=== PATIENT | male | born 1965 | race Caucasian/White ===

== ENCOUNTER 2021-05-05 07:55 | Emergency (ER) | payer MEDICARE, SELFPAY ==
--- NOTE | 2021-05-05 08:17 | DI.RAD.S_ITS ---
PROCEDURE: XR ELBOW LT MIN 3V INDICATIONS: Elbow Pain TECHNIQUE: 3 views of the elbow were acquired. COMPARISON: None. FINDINGS: Bones: Linear lucency at the radial head. This is only seen on one view. No dislocations. No suspicious bony lesions. Soft tissues: No elbow joint effusion demonstrated. No suspicious soft tissue calcifications. IMPRESSION: Possible nondisplaced radial head fracture. CT of the elbow could be performed to confirm the diagnosis. Recommend follow-up radiographs in 10-14 days. Dictated by: Alcides Villasenor M.D. on 05/05/2021 at 8:44 Approved by: Alcides Villasenor M.D. on 05/05/2021 at 8:47
[2021-05-05 08:19] VITALS: BP 160/94; PULSE 66; RESP 16; TEMP 36.5; O2SAT 99; BMI 29.5
--- NOTE | 2021-05-05 08:36 | ED.UPPEXIN ---
HPI - Extremity Injury (Upper) General Chief Complaint: Extremity Injury, Upper Stated Complaint: Left elbow pain, weakness Time Seen by Provider: 05/05/21 08:22 Source: patient Mode of arrival: Ambulatory Limitations: no limitations History of Present Illness HPI narrative: This is a 55-year-old male who comes to the emergency department with complaint of left elbow pain. Patient does not recall any specific trauma or injury. He does note that he has a new job working in a [employer]. Patient notes that he has pain in the inner crease of the elbow at the tendon as well as the tip of the elbow. He has not appreciated any swelling. No warmth, erythema or other skin changes. Patient states increased pain with movement particularly lifting but also rotating. Patient states that when he lifts objects at causes pain. He states that it feels weaker when he tries to lift objects but just at the elbow. 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 He has not had similar symptoms in the past. He denies any numbness, tingling or other sensation changes. He denies any other symptoms. No chest pain, shortness of breath, no fevers. Patient does note incidentally he had accidentally had the edge of a drill injury the skin on his abdomen. He had the drill pointed towards an object that was drilling through an object sitting on his abdomen. The drill penetrated the object and caught his shirt and caused an injury to his anterior abdomen. He states it has been healing without issue. He does not know if his tetanus is up-to-date but politely refuses updating it today. He does have a history of SVT, diabetes and takes multiple medications. He does smoke daily, denies any illicit. 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 Patient is currently seeking a primary care provider. Related Data Allergies Allergy/AdvReac Type Severity Reaction Status Date / Time Latex, Natural Rubber Allergy Verified 05/05/21 08:19 Review of Systems Review of Systems ROS Unobtainable: All systems reviewed & are unremarkable except as noted in HPI and below Patient History Social History Smoking Status: Current every day smoker Smoking Status: Current every day smoker tobacco type: vaping Substance Use Type: does not use Exam Narrative Exam Narrative: GENERAL: Alert and oriented x three, mild distress. HEENT: Head normocephalic, atraumatic, EOMI, pupils reactive, face symmetric, moist mucous membranes NECK: Supple, full range of motion CARDIOVASCULAR: Regular rate and rhythm without murmurs, rubs or gallops. RESPIRATORY: Breath sounds equal bilaterally, no wheezes rales or rhonchi. ABDOMEN: Soft, nontender. Normoactive bowel sounds all 4 quadrants. No guarding or rebound, rigidity, no mass. Patient has small abrasion which is scabbed over on his anterior abdomen superior to the umbilicus. There is no warmth erythema or drainage. It appears to be healing appropriately. EXTREMITIES: Normal range of motion, no clubbing or edema. Neurovascularly intact. Patient does not have any bony tenderness on examination. 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 2+ radial pulse bilaterally. Patient has cap refills less than 2 seconds in all 10 fingers with normal sensation throughout upper extremities. Patient does have some mild discomfort with palpation the tendon in the inner elbow. Patient does not have any swelling or ballotable effusion of the elbow. NEUROLOGICAL: Cranial nerves II through XII grossly intact. Moving all extremities SKIN: Warm, dry, no petechiae, no rashes or lesions other than noted above. Initial Vital Signs Initial Vital Signs: Vital Signs Temperature 97.7 F 05/05/21 08:19 Pulse Rate 66 05/05/21 08:19 Respiratory Rate 16 05/05/21 08:19 Blood Pressure 160/94 H 05/05/21 08:19 Pulse Oximetry 99 05/05/21 08:19 Course Orders Ordered: ED Orders 05/05/21 08:17 XR elbow LT min 3V Stat 05/05/21 09:04 CT UE LT wo con Stat Vital Signs Vital signs: Vital Signs - 8 hr 05/05/21 08:19 Temperature 97.7 F Pulse Rate 66 Respiratory Rate 16 Blood Pressure 160/94 H Pulse Oximetry 99 MDM - Extremity Injury (Upper) Lab Data Labs: Point of Care Testing Glucose POC 97 Imaging Data Extremity x-ray #1: Radiologist's Impression: Launch?[address] [address] XRay Report Signed Patient: Adair Branch MR#: [id number] : 1965 Acct:[id number] Age/Sex: 55 / M Date of Service: 05/05/21 Loc: ED Accession Number: [id number] ?? Procedure: XR elbow LT min 3V Ordering Provider: Savana Ramires D.O. PROCEDURE:? XR ELBOW LT MIN 3V ? INDICATIONS:? Elbow Pain ? TECHNIQUE:? 3 views of the elbow were acquired.? ? COMPARISON:? None. ? FINDINGS:? ? Bones:? Linear lucency at the radial head.? This is only seen on one view.? No dislocations.? No suspicious bony lesions.? ? Soft tissues:? No elbow joint effusion demonstrated.? No suspicious soft tissue calcifications.? ? ? IMPRESSION:? Possible nondisplaced radial head fracture. ? CT of the elbow could be performed to confirm the diagnosis.? Recommend follow-up radiographs in 10-14 days. ? ? Dictated by: Alcides Villasenor M.D. on 05/05/2021 at 8:44 ? ? Approved by: Alcides Villasenor M.D. on 05/05/2021 at 8:47 CT UE: Radiologist's Impression: [place] [address] CT Scan Report Signed Patient: Adair Branch MR#: [id number] : 1965 Acct:[id number] Age/Sex: 55 / M Date of Service: 05/05/21 Loc: ED Accession Number: [id number] ?? Procedure: CT UE LT wo con Ordering Provider: Savana Ramires D.O. PROCEDURE:? CT UE LT WO CON ? INDICATIONS:? ? radial head fracture ? TECHNIQUE:? Noncontrast 1-1.5 mm axial sections were acquired through the elbow joint, with coronal and sagittal reformats.? ? COMPARISON:? [facility], CR, XR ELBOW LT MIN 3V, 05/05/2021, 8:17. ? FINDINGS:? Image quality:? Excellent.? ? Bones:? No fracture or dislocation. ? Soft tissues:? No soft tissue mass or large hematoma.? There is stranding and heterogeneous attenuation in the posterior elbow around olecranon.? No fluid collections. ? IMPRESSION:? ? 1. No radial head fracture is visualized on CT. 2. Stranding and heterogeneous attenuation posterior to elbow.? Differential diagnoses include partial tear or tendinitis of the triceps tendon and olecranon bursitis. ? ? ? Dictated by: Clayton Green M.D. on 05/05/2021 at 9:56 ? ? Approved by: Clayton Green M.D. on 05/05/2021 at 10:19? MDM Narrative Medical decision making narrative: This is a 55-year-old male who has left elbow pain with no known traumatic injury. Patient is not particularly tender on bony exam but he has had 2 weeks of symptoms. X-ray shows possible radiolucency. Patient has good range of motion but with his persistent symptoms and pain CT of upper extremities recommended by Radiology and was obtained. No fracture. Patient does have changes consistent with either a bursitis or possibly injury to the tendon. Patient was placed in sling. Follow-up with orthopedic surgery. NSAIDs as needed. Discharge Plan Departure Patient Disposition: Home Clinical Impression: Left elbow tendinitis, Abdominal wall abrasion Instructions: DI for Tendinitis Activity Restrictions/Additional Instructions: You may contact [phone] through the call center to help you find a plan [facility] care physician to establish care. Also included below is an additional contact. Follow-up with orthopedic surgery for recheck. It is recommended that your tetanus be updated today. Your exam is consistent with a tendinitis or inflammation of the tendon in your elbow. Treatment typically consists of NSAIDs, supportive care such as a brace or elbow compression sleeve/brace and rest. There possibility of a tendon tear and I would wear a sling and follow-up with orthopedic surgery for evaluation. You may take Aleve twice daily for inflammation and irritation. You may also ice the area hourly if you find this helpful. You can also follow-up with Orthopedic surgery or primary care if he continues to be persistent. Referrals: Spencer Larkin MD [Physician] - Miguel Reed MD [Physician] - Stand Alone Forms: Work Release Note
--- NOTE | 2021-05-05 09:04 | DI.CT.S_ITS ---
PROCEDURE: CT UE LT WO CON INDICATIONS: ? radial head fracture TECHNIQUE: Noncontrast 1-1.5 mm axial sections were acquired through the elbow joint, with coronal and sagittal reformats. COMPARISON: [facility], CR, XR ELBOW LT MIN 3V, 05/05/2021, 8:17. FINDINGS: Image quality: Excellent. Bones: No fracture or dislocation. Soft tissues: No soft tissue mass or large hematoma. There is stranding and heterogeneous attenuation in the posterior elbow around olecranon. No fluid collections. IMPRESSION: 1. No radial head fracture is visualized on CT. 2. Stranding and heterogeneous attenuation posterior to elbow. Differential diagnoses include partial tear or tendinitis of the triceps tendon and olecranon bursitis. Dictated by: Clayton Green M.D. on 05/05/2021 at 9:56 Approved by: Clayton Green M.D. on 05/05/2021 at 10:19
== END 2021-05-05 10:56 | disposition home or self-care (01) ==
PROVIDERS: Emergency Provider Emergency Medicine
DX: M77.8 Other enthesopathies, not elsewhere classified (principal); S30.811A Abrasion of abdominal wall, initial encounter; F17.290 Nicotine dependence, other tobacco product, uncomplicated; X58.XXXA Exposure to other specified factors, initial encounter
CPT/HCPCS: 73080; 73200; 82962; 99284